=== PATIENT | female | born 1995 | race Caucasian/White ===

== ENCOUNTER 2020-03-11 05:36 | Day surgery (SDC) | payer BC ==
[2020-03-03 15:52] LABS: BASOPHILS % (AUTO) 0 % (0-1); EOSINOPHILS # (AUTO) 0.2 X10'3 (0-0.9); EOSINOPHILS % (AUTO) 3.8 % (0-6); LYMPHOCYTES # (AUTO) 1.8 X10'3 (1.1-4.8); LYMPHOCYTES % (AUTO) 28.8 % (21-51); MEAN CORPUSCULAR HEMOGLOBIN 32.7 PG (27.0-31.0); MEAN CORPUSCULAR HGB CONC 33.9 g/dL (33.0-36.5); MEAN CORPUSCULAR VOLUME 96.7 FL (78-98); MONOCYTES # (AUTO) 0.3 X10'3 (0-0.9); MONOCYTES % (AUTO) 5.5 % (2-12); NEUTROPHILS # (AUTO) 3.8 X10'3 (1.8-7.7); NEUTROPHILS % (AUTO) 61.9 % (42-75); PRE OP HEMATOCRIT 40.9 % (35.0-45.0); PRE OP HEMOGLOBIN 13.9 g/dL (12.0-16.0); PRE OP PLATELET COUNT 339 X10'3 (140-440); RED BLOOD COUNT 4.23 X10'6 (4.20-5.60); RED CELL DISTRIBUTION WIDTH 12.7 % (11.5-14.5)
[2020-03-03 16:09] LABS: ALBUMIN 4.8 G/DL (3.4-5.0); ALBUMIN/GLOBULIN RATIO 1.4 (1.1-1.5); ALKALINE PHOSPHATASE 47 IU/L (46-116); BLOOD UREA NITROGEN 11 MG/DL (7-18); BUN/CREATININE RATIO 13.6 (6.6-38.0); CALCIUM 9.4 MG/DL (8.5-10.1); CHLORIDE 105 MMOL/L (99-107); CREATININE 0.81 MG/DL (0.40-0.90); PRE OP ALT 27 U/L (30-65); PRE OP ANION GAP 12 (8-16); PRE OP AST 19 U/L (10-37); PRE OP BILIRUB, TOTAL 0.4 MG/DL (0.0-1.0); PRE OP GLUCOSE 98 MG/DL (70-104); PRE OP SODIUM 144 MMOL/L (135-145); TOTAL CARBON DIOXIDE 26.9 MMOL/L (24-32); TOTAL PROTEIN 8.3 G/DL (6.4-8.2); eGFR 88 ML/MIN
[2020-03-03 16:35] LABS: HCG SERUM QL NEGATIVE
[2020-03-11] VITALS (9 sets, daily range): BP systolic 124–149; BP diastolic 71–102
[~2020-03-11] VITALS: Ht 172.7 cm; Wt 99.8 kg
[~2020-03-11 05:36] MED LIST: INDOCYANINE GREEN 25 MG/10 ML VIAL IV ONE; THYR60TA2 PO; ceFAZolin 2gm in dextrose, iso 50 ML IV ONE; famotidine 20mg tablet PO ONE; ringers solution, lacted 1,000 ML IV SCH
[2020-03-11] MEDS ORDERED: LIDOcaine 1% (10mg/ml) 2ml vial ONE (05:57)
[2020-03-11] MEDS ORDERED: LIDOcaine 1% 30ml preserv. free vial ONE (06:41)
[2020-03-11] MEDS ORDERED: BUPIVAcaine/PF 2.5 mg/ml (0.25%) 30ml vial ONE (06:41)
[2020-03-11] MEDS ORDERED: INDOCYANINE GREEN 25 MG/10 ML VIAL IV ONE (06:50)
[2020-03-11] MEDS ORDERED: ondansetron/PF 4mg/2ml inj ONE (07:15)
[2020-03-11] MEDS ORDERED: ringers solution, lacted 1,000 ML IV SCH (07:35)
[2020-03-11] MEDS ORDERED: meperidine/PF 25mg/ml syringe IV PRN ×3 (07:35)
[2020-03-11] MEDS ORDERED: morphine 2 MG/ML inj. syringe IV PRN (07:35)
[2020-03-11] MEDS ORDERED: morphine 4 MG/ML inj SYRINge IV PRN (07:35)
[2020-03-11] MEDS ORDERED: proCHLORperazine 10 MG/2 ml inj IV PRN (07:35)
[2020-03-11] MEDS ORDERED: ondansetron/PF 4mg/2ml inj IV PRN (07:35)
[2020-03-11] MEDS ORDERED: fentaNYL/PF 50MCG/1 ML 2ML syringe ONE ×2 (07:49→08:33)
[2020-03-11] MEDS ORDERED: midazolam 2 mg/2 ml injection ONE (07:49)
[2020-03-11] MEDS ORDERED: LIDOcaine 2% (20mg/ml) 5ml vial ONE (07:52)
[2020-03-11] MEDS ORDERED: rocuronium 10mg/ml inj IV ONE (07:52)
[2020-03-11] MEDS ORDERED: propofol inj 20 ML IV ONE (07:52)
[2020-03-11] MEDS ORDERED: dexamethasone sod phosphate 4mg/ml inj. ONE ×2 (07:54→08:45)
[2020-03-11] MEDS ORDERED: sevoflurane 250ml liquid IH ONE (08:05)
[2020-03-11] MEDS ORDERED: neostigmine methylsulfate 1 MG/ML 10ml vial ONE (08:45)
[2020-03-11] MEDS ORDERED: glycopyrrolate 0.2mg/ml inj ONE (08:45)
[2020-03-11] MEDS ORDERED: acetaminophen 1,000mg/100ml IV 100 ML IV ONE (09:00)
--- NOTE | 2020-03-11 09:08 | NUR ---
Received from OR via [facility] , accompanied by Anesthesiologist LUIZ and report given by Anesthesiolgist. PATIENT WITH 10L MASK ON WITH 100% SATURATIONS. VSS. DENIES PAIN OR NAUSEA. 20G PIV IN RIGHT UE RUNNING LR AT 100. 4 ABDOMINAL BANDAIDS TO ABDOMEN ARE ALL CDI. Addendum: 03/11/20 at 0920 by Mario Johnson RN, RN Amended: Links added.
[2020-03-11] MEDS ORDERED: HYDROcodone/acetaminophen 5mg/325mg tablet PO PRN (09:30)
[2020-03-11] MEDS ORDERED: oxyCODONE/APAP 5-325mg tablet PO PRN (09:40)
--- NOTE | 2020-03-11 10:28 | NUR ---
PATIENT VERBALIZED UNDERSTANDING, OPPORTUNITY TO ASK QUESTIONS GIVEN AND PATIENT COMFORTABLE WITH DC. IV TAKEN OUT WITHOUT COMPLICATION. PATIENT HAS MET ALL DC CRITERIA FOR DC HOME. I HAVE REVIEWED D/C INSTRUCTIONS WITH PATIENT. TAKEN OUT VIA WHEELCHAIR WHERE PATIENT WAS TAKEN HOME WITH ALL BELONGINGS. FAMILY GAVE PATIENT TRANSPORT HOME. ALL DC INSTRUCTIONS GIVEN TO MOTHER WHO DROVE PATIENT HOME. Addendum: 03/11/20 at 1044 by Mario Johnson RN, RN Amended: Links added.
== END 2020-03-11 10:28 | disposition home or self-care (01) ==
LOC: PAS 05:36
PROVIDERS: ATTEND Surgery
DX: K80.20 Calculus of gallbladder without cholecystitis without obstruction (principal); Z20.828 Contact with and (suspected) exposure to other viral communicable diseases; E66.9 Obesity, unspecified; Z68.33 Body mass index [BMI] 33.0-33.9, adult; Z88.2 Allergy status to sulfonamides; Z87.891 Personal history of nicotine dependence; Z72.89 Other problems related to lifestyle; Z79.899 Other long term (current) drug therapy; F12.90 Cannabis use, unspecified, uncomplicated; Z82.49 Family history of ischemic heart disease and other diseases of the circulatory system
CPT/HCPCS: 36415; 47563; 80053; 82948; 84703; 85025; 87635; 93005; 93306; J0131; J1100; J2001; J2250; J2405; J2704; J2710; J3010; J3490; J7120; S2900; A4215; A4618; A7000

== ENCOUNTER 2020-03-12 18:56 | Emergency (ER) | payer BC ==
[~2020-03-12] VITALS: Ht 172.7 cm; Wt 94.1 kg
[~2020-03-12 18:56] MED LIST changes: -INDOCYANINE GREEN 25 MG/10 ML VIAL IV ONE; -ceFAZolin 2gm in dextrose, iso 50 ML IV ONE; -famotidine 20mg tablet PO ONE; -ringers solution, lacted 1,000 ML IV SCH
[2020-03-12 19:44] LABS: BASOPHILS % (AUTO) 0.1 % (0-1); EOSINOPHILS # (AUTO) 0.1 X10'3 (0-0.9); HEMATOCRIT 37.8 % (35.0-45.0); HEMOGLOBIN 12.9 g/dl (12.0-16.0); LYMPHOCYTES % (AUTO) 36.8 % (21-51); MEAN CORPUSCULAR HEMOGLOBIN 32.9 PG (27.0-31.0); MEAN CORPUSCULAR VOLUME 96.8 FL (78-98); MEAN PLATELET VOLUME 8.2 FL (7.4-10.4); MONOCYTES # (AUTO) 0.7 X10'3 (0-0.9); MONOCYTES % (AUTO) 6.3 % (2-12); NEUTROPHILS % (AUTO) 55.8 % (42-75); PLATELET COUNT 326 X10'3 (140-440); RED CELL DISTRIBUTION WIDTH 12.8 % (11.5-14.5); WHITE BLOOD COUNT 10.8 X10'3 (4.5-11.0)
[2020-03-12 19:57] LABS: ALANINE AMINOTRANSFERASE 28 U/L (12-78); ALBUMIN 4.7 G/DL (3.4-5.0); ALBUMIN/GLOBULIN RATIO 1.4 (1.1-1.5); ALKALINE PHOSPHATASE 43 IU/L (46-116); ANION GAP 10 (8-16); ASPARTATE AMINO TRANSFERASE 20 U/L (10-37); BILIRUBIN,TOTAL 0.5 MG/DL (0.1-1.0); BLOOD UREA NITROGEN 10 MG/DL (7-18); BUN/CREATININE RATIO 11.2 (6.6-38.0); CALCIUM 9.3 MG/DL (8.5-10.1); CHLORIDE 102 MMOL/L (99-107); CREATININE 0.89 MG/DL (0.40-0.90); GLUCOSE 109 MG/DL (70-104); POTASSIUM 3.5 MMOL/L (3.5-5.1); SODIUM 140 MMOL/L (135-145); TOTAL CARBON DIOXIDE 28.2 MMOL/L (24-32); TOTAL PROTEIN 8.1 G/DL (6.4-8.2); eGFR 79 ML/MIN
[2020-03-12 20:51] LABS: TROPONIN I < 0.04 NG/ML (0.0-0.05)
[2020-03-12 21:28] VITALS: BP 123/80
== END 2020-03-12 21:30 | disposition home or self-care (01) ==
LOC: ER 18:57
DX: R55 Syncope and collapse (principal); Z88.2 Allergy status to sulfonamides; Z79.899 Other long term (current) drug therapy; Z90.49 Acquired absence of other specified parts of digestive tract
CPT/HCPCS: 36415; 80053; 84484; 85025; 93005; 99284